=== PATIENT | female | born 1995 | race Caucasian/White ===

== ENCOUNTER 2017-05-30 14:55 | Emergency (ER) | payer OTHER ==
[~2017-05-30] VITALS: Ht 154.9 cm; Wt 63.1 kg
[2017-05-30 14:57] VITALS: TEMP 37.2; Ht 154.9 cm; Wt 63.1 kg
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
--- NOTE | 2017-05-30 15:57 | DIAGNOSTIC IMAGING REPORT ---
HEAD WITHOUT CONTRAST (CT) CLINICAL HISTORY: 21 years-old Female with head injury, concussion symptoms. Acute head injury. Initial exam. TECHNIQUE: Multiple axial CT images of the head were obtained without contrast. A dose lowering technique was utilized adhering to the principles of ALARA. CT DOSE: 638.56 mGycm COMPARISON: None. FINDINGS: No acute intracranial hemorrhage, midline shift, mass, large territorial ischemia or abnormal extra-axial collection. The calvarium is intact. The paranasal sinuses, mastoid air cells, and middle ear cavities are clear. IMPRESSION: No acute intracranial abnormality. The above report was generated using voice recognition software. It may contain grammatical, syntax or spelling errors. Electronically signed by: Walter Bermeo M.D. 05/30/2017 3:56 PM Dictated Date/Time: 05/30/2017 3:54 PM
[2017-05-30] MEDS ORDERED: ABL/5 PO (15:59)
[2017-05-30] MEDS ORDERED: BCPILLS PO (15:59)
[2017-05-30] MEDS ORDERED: SERT-234 PO (15:59)
[2017-05-30] MEDS ORDERED: MULT-240 PO (15:59)
[2017-05-30 16:21] VITALS: BP 145/87; PULSE 94; O2SAT 99
== END 2017-05-30 16:22 | disposition home or self-care (01) ==
LOC: C.EDB 14:55 → C.EDD 16:22
DX: S06.0X0A Concussion without loss of consciousness, initial encounter (principal); W50.1XXA Accidental kick by another person, initial encounter; Y93.45 Activity, cheerleading; F41.9 Anxiety disorder, unspecified; F32.9 Major depressive disorder, single episode, unspecified; Z79.3 Long term (current) use of hormonal contraceptives